=== PATIENT | female | born 1975 | race Caucasian/White ===

== ENCOUNTER → 2021-05-12 | Outpatient (CLI) | payer OTHER | LOC: COL.RAD 11:15 | DX: M51.37 Other intervertebral disc degeneration, lumbosacral region (principal); M47.817 Spondylosis without myelopathy or radiculopathy, lumbosacral region; R19.00 Intra-abdominal and pelvic swelling, mass and lump, unspecified site ==

== ENCOUNTER → 2022-05-22 | Outpatient (CLI) | payer OTHER | LOC: COL.RAD 07:19 | DX: N32.89 Other specified disorders of bladder (principal); N28.89 Other specified disorders of kidney and ureter | CPT/HCPCS: Q9967 ==